=== PATIENT | female | born 1930 | race Caucasian/White ===

== ENCOUNTER → 2016-09-07 | Outpatient (CLI) | payer MEDICARE, OTHER ==
[~2016-09-07] MED LIST: CALCIUM500 MG PO; FISH OIL 1,0001 CA2 PO; VITAMIN D1000 UNI1 PO; ZOCOR20 MG PO; ZYRTEC10 M2 PO
--- NOTE | ~2016-09-07 | CR181 ---
[facility] A Service of [facility] RADIOLOGY TEXT RESULTS PATIENT: DELMER MELO LOCATION: [facility] : 28 UNIT #: [id number] AGE: [address]: Yary Villalpando MD SEX: F ORDER DR: [id number] [address] [address] [id number] O MR#: [id number] Acc #: [id number] NAME: DELMER MELO : 1930 SEX: F STUDY DATE/TIME: 09/07/2016 8:29 UNIT: [facility] ROOM: STUDY DESCRIPTION: CR Lumbar Spine 2 or 3 Views Attending Physician: Yary Villalpando M.D. Referring Physician: Yary Villalpando M.D. Ordering Physician: Yary Villalpando M.D. Primary Care Physician: Yary Villalpando M.D. MEDICAL IMAGING REPORT This report is preliminary unless electronic signature is present. EXAM 3 views lumbar spine. DATE 09/07/2016 HISTORY Lumbar pain, low back pain for 5 years. No known injury. Degenerative disc disease. COMPARISON Lumbar spine radiographs 03/31/2010. FINDINGS There is approximately 19 degrees levoscoliosis centered at L3. There is diminished disc height, most advanced eccentrically on the right at L3-4. Multilevel lumbar facet arthropathy is present, from L2-3 through L5-S1, thought to be greatest at L3-4 and L4-5. 2 mm anterolisthesis L3 upon L4 and 4 mm anterolisthesis L4 upon L5 again noted, probably not significantly changed allowing for slight differences in positioning since the 2009 examination. Anterior osteophytes are present, greatest at L3 and L4. No sacroiliac joint diastasis is seen. IMPRESSION 1. Advanced degenerative changes of the lumbar spine as described above with levoscoliosis. There is grade I anterolisthesis L3 upon L4 and L4 upon L5, which does not appear appreciably changed. Facet arthropathy is noted at multiple levels, which may be slightly increased since the 2009 examination. 2. No acute lumbar spine findings. [facility] A Service of [facility] RADIOLOGY TEXT RESULTS PATIENT: DELMER MELO LOCATION: [facility] : 28 UNIT #: [id number] AGE: [address]: Yary Villalpando MD SEX: F ORDER DR: Dictated by... Maty Baltazar M.D. THIS IS AN ELECTRONICALLY VERIFIED REPORT Maty Baltazar M.D. at 09/08/2016 7:09 AM KASEY/[email or web address] TD: 09/07/2016 21:44 JOB #: [id number] MEDICAL IMAGING REPORT Page 1 of 1
[2016-09-07 10:01] LABS: ALBUMIN SERUM 4.1 g/dL (3.5-5.0); BILIRUBIN,TOTAL 0.3 mg/dL (0.2-2.0); BUN/CREATININE RATIO 28.88; CREATININE SERUM 0.9 mg/dL (0.6-1.4); GLOM FILT RATE Estimated 57.9 mL/min (>60); POTASSIUM 4.3 mmol/L (3.5-5.1); PROTEIN TOTAL SERUM 7.3 g/dL (6.0-8.3)
== END | disposition home or self-care (01) ==
LOC: SRAD 08:04
PROVIDERS: Family Medicine
DX: M51.36 Other intervertebral disc degeneration, lumbar region (principal); E78.2 Mixed hyperlipidemia; M47.896 Other spondylosis, lumbar region; M41.9 Scoliosis, unspecified; M43.16 Spondylolisthesis, lumbar region; M46.96 Unspecified inflammatory spondylopathy, lumbar region
CPT/HCPCS: 36415; 72100; 80053; 80061